=== PATIENT | female | born 1955 | race Caucasian/White ===

== ENCOUNTER → 2017-08-05 | Outpatient (CLI) | payer OTHER ==
[~2017-08-05] MED LIST: AMOX1TAB64 PO; FERR325T18 PO; FLUO40CA9 PO; HYDR-882 PO; HYDR2TAB29 PO; LORA2TAB PO; MORP-52 PO; OXYC-307 PO; POLY17PO5 PO
== END | disposition home or self-care (01) ==
LOC: CVU 06:46
PROVIDERS: ATTEND Surgery
DX: I77.819 Aortic ectasia, unspecified site (principal); I70.0 Atherosclerosis of aorta; I74.5 Embolism and thrombosis of iliac artery; Z87.891 Personal history of nicotine dependence; Z85.048 Personal history of other malignant neoplasm of rectum, rectosigmoid junction, and anus; E78.5 Hyperlipidemia, unspecified
CPT/HCPCS: 93880; 93922; 93978

== ENCOUNTER → 2017-09-21 | Outpatient (CLI) | payer OTHER ==
[~2017-09-21] MED LIST changes: +OMNIPAQUE 350 MG/ML, 100ML BOTTLE ONE
== END ==
LOC: CFH 09:09
PROVIDERS: ATTEND Internal Medicine Hematology & Oncology
DX: J43.2 Centrilobular emphysema (principal); J98.4 Other disorders of lung; Z85.048 Personal history of other malignant neoplasm of rectum, rectosigmoid junction, and anus; Z90.49 Acquired absence of other specified parts of digestive tract; Z93.3 Colostomy status; Z98.890 Other specified postprocedural states
CPT/HCPCS: 71260; 74177; Q9967

== ENCOUNTER → 2018-03-04 | Outpatient (CLI) | payer OTHER ==
[~2018-03-04] MED LIST changes: +ATOR10TA9 PO; +CLOP75TA52 PO; +DONE5TAB7 PO; +FLUO40CA2 PO; -OMNIPAQUE 350 MG/ML, 100ML BOTTLE ONE; +UMEC1DIS INH
== END | disposition home or self-care (01) ==
LOC: STAR 07:34
PROVIDERS: ATTEND Surgery
DX: Z02.9 Encounter for administrative examinations, unspecified (principal)

== ENCOUNTER 2018-03-07 09:00 | Day surgery (SDC) | payer OTHER ==
[2018-03-04 08:52] LABS: BASOPHILS # (AUTO) 0.04 x10^3/uL (0-0.1); BASOPHILS % (AUTO) 0 % (0-1); EOSINOPHILS # (AUTO) 0.13 x10^3/uL (0-0.4); EOSINOPHILS % (AUTO) 1 % (1-7); LYMPHOCYTES # (AUTO) 1.43 x10^3/uL (1-3.4); LYMPHOCYTES % (AUTO) 15 % (22-44); MD NO; MEAN CORPUSCULAR HGB CONC 33.6 g/dL (32.4-35.8); MEAN CORPUSCULAR VOLUME 89.4 fL (80-100); MEAN PLATELET VOLUME 7.5 fL (7.4-10.4); MONOCYTES # (AUTO) 0.48 x10^3/uL (0.2-0.8); MONOCYTES % (AUTO) 5 % (2-9); NEUTROPHILS # (AUTO) 7.47 x10^3/uL (1.8-6.8); NEUTROPHILS % (AUTO) 78 % (42-75); PLATELET COUNT 244 x10^3/uL (130-400); RED BLOOD COUNT 5.15 x10^6/uL (3.82-5.3)
[2018-03-04 09:03] LABS: ANION GAP 6 mmol/L (5-15); CALCIUM 9.2 mg/dL (8.5-10.1); CHLORIDE 108 mmol/L (98-107); CREATININE 1.28 mg/dL (0.55-1.02)
[~2018-03-07] VITALS: Ht 167.6 cm; Wt 62.7 kg
[2018-03-07 09:45] VITALS: BP 103/70
[2018-03-07] MEDS ORDERED: SODIUM CHLORIDE 0.9% 1,000 ML IV SCH ×3 (09:47→11:04)
[2018-03-07] MEDS ORDERED: LIDOCAINE-MPF 2%, 2ML ONE (09:55)
[2018-03-07] MEDS ORDERED: FENTANYL PF 100 MCG/2ML ONE (10:10)
[2018-03-07] MEDS ORDERED: NALOXONE 1 MG/ML, 2ML ONE (10:10)
[2018-03-07] MEDS ORDERED: HEPARIN 1,000 UNITS/ML, 10ML ONE (10:10)
[2018-03-07] MEDS ORDERED: PROTAMINE SULFATE 10 MG/ML, 25ML ONE (10:10)
[2018-03-07] MEDS ORDERED: MIDAZOLAM 1 MG/ML, 5ML ONE (10:10)
[2018-03-07] MEDS ORDERED: NITROGLYCERIN 5 MG/ML, 10ML ONE (10:10)
[2018-03-07] MEDS ORDERED: FLUMAZENIL 0.1 MG/1 ML, 5ML ONE (10:10)
[2018-03-07] MEDS ORDERED: VISIPAQUE 270 MG/ML, 50ML BOTTLE ONE (10:30)
[2018-03-07] MEDS ORDERED: CLOPIDOGREL 75 MG TABLET ONE (11:31)
== END 2018-03-07 13:00 | disposition home or self-care (01) ==
LOC: ENDO 09:00 → OUT 13:00
PROVIDERS: ATTEND Surgery
DX: I70.212 Atherosclerosis of native arteries of extremities with intermittent claudication, left leg (principal); F41.9 Anxiety disorder, unspecified; J44.9 Chronic obstructive pulmonary disease, unspecified; Z93.3 Colostomy status; Z85.048 Personal history of other malignant neoplasm of rectum, rectosigmoid junction, and anus; Z85.44 Personal history of malignant neoplasm of other female genital organs; Z88.1 Allergy status to other antibiotic agents
CPT/HCPCS: 36415; 37220; 75630; 76937; 80048; 85025; 99156; 99157; C1769; C1894; C2623; J1644; J2250; J3010; J3490; J7030; Q9966; J2720; J2310

== ENCOUNTER → 2018-05-19 | Outpatient (CLI) | payer OTHER ==
[~2018-05-19] MED LIST changes: +HYDR-3653 PO; -HYDR-882 PO
== END | disposition home or self-care (01) ==
LOC: CFH 10:12
PROVIDERS: ATTEND Family Medicine
DX: Z12.31 Encounter for screening mammogram for malignant neoplasm of breast (principal)
CPT/HCPCS: 77067

== ENCOUNTER → 2018-09-27 | Outpatient (CLI) | payer MEDICARE, OTHER | END | disposition home or self-care (01) | LOC: CVU 12:12 | PROVIDERS: ATTEND Surgery | DX: I70.201 Unspecified atherosclerosis of native arteries of extremities, right leg (principal); I77.819 Aortic ectasia, unspecified site; E78.5 Hyperlipidemia, unspecified; Z85.048 Personal history of other malignant neoplasm of rectum, rectosigmoid junction, and anus; Z95.820 Peripheral vascular angioplasty status with implants and grafts; Z87.891 Personal history of nicotine dependence | CPT/HCPCS: 93922; 93925; 93978 ==

== ENCOUNTER 2019-02-20 14:34 | Outpatient (CLI) | payer MEDICARE | END 2019-02-20 23:59 | disposition home or self-care (01) | LOC: CVU 14:34 | PROVIDERS: ATTEND Surgery | DX: I65.23 Occlusion and stenosis of bilateral carotid arteries (principal); I70.203 Unspecified atherosclerosis of native arteries of extremities, bilateral legs; I77.819 Aortic ectasia, unspecified site; I74.5 Embolism and thrombosis of iliac artery; E78.5 Hyperlipidemia, unspecified; Z72.0 Tobacco use | CPT/HCPCS: 93880; 93922; 93925; 93978 ==

== ENCOUNTER 2019-02-22 09:02 | Inpatient (IN) | payer MEDICARE ==
[~2019-02-22] VITALS: Ht 170.2 cm; Wt 67.4 kg
[2019-02-25 07:15] VITALS: BP 97/62
== END 2019-02-25 12:51 | disposition home or self-care (01) | DRG 254 ==
LOC: ORIP 09:02 → 4NOR 15:43 → DCLOUNGE 02-25 12:32
PROVIDERS: ADMIT Surgery; ATTEND Surgery
PROC: 04CL0ZZ Extirpation of Matter from Left Femoral Artery, Open Approach (ICD-10-PCS; principal; 2019-02-22)
PROC: 04UL0KZ Supplement Left Femoral Artery with Nonautologous Tissue Substitute, Open Approach (ICD-10-PCS; 2019-02-22)
PROC: 04CK0ZZ Extirpation of Matter from Right Femoral Artery, Open Approach (ICD-10-PCS; 2019-02-22)
PROC: 04UK0KZ Supplement Right Femoral Artery with Nonautologous Tissue Substitute, Open Approach (ICD-10-PCS; 2019-02-22)
PROC: 041K0JJ Bypass Right Femoral Artery to Left Femoral Artery with Synthetic Substitute, Open Approach (ICD-10-PCS; 2019-02-22)
PROC: 03HY32Z Insertion of Monitoring Device into Upper Artery, Percutaneous Approach (ICD-10-PCS; 2019-02-22)
DX: T82.898A Other specified complication of vascular prosthetic devices, implants and grafts, initial encounter (principal); Z93.3 Colostomy status; F41.9 Anxiety disorder, unspecified; D64.9 Anemia, unspecified; Y83.8 Other surgical procedures as the cause of abnormal reaction of the patient, or of later complication, without mention of misadventure at the time of the procedure; J44.9 Chronic obstructive pulmonary disease, unspecified; Z85.048 Personal history of other malignant neoplasm of rectum, rectosigmoid junction, and anus; Z88.2 Allergy status to sulfonamides; Z87.891 Personal history of nicotine dependence; Z82.49 Family history of ischemic heart disease and other diseases of the circulatory system; Y92.89 Other specified places as the place of occurrence of the external cause
CPT/HCPCS: 36415; 80048; 85025; 93005; G0378; J0171; J0690; J1100; J1644; J2250; J2405; J2704; J2720; J3010; J3490; C1768; J0330; J2270; J7120

== ENCOUNTER → 2019-06-06 | Outpatient (CLI) | payer MEDICARE ==
[~2019-06-06] MED LIST changes: +ACET325T26 PO; +CYCL-259 PO; +DOCU-131 PO; +ONDA4TAB7 PO; +OXYC-302 PO
== END | disposition home or self-care (01) ==
LOC: CVU 06:26
PROVIDERS: ATTEND Surgery
DX: I74.5 Embolism and thrombosis of iliac artery (principal); F41.9 Anxiety disorder, unspecified; E78.5 Hyperlipidemia, unspecified; J44.9 Chronic obstructive pulmonary disease, unspecified; Z87.891 Personal history of nicotine dependence; Z85.048 Personal history of other malignant neoplasm of rectum, rectosigmoid junction, and anus; Z90.89 Acquired absence of other organs; Z98.890 Other specified postprocedural states; Z88.2 Allergy status to sulfonamides
CPT/HCPCS: 93922; 93925; 93978

== ENCOUNTER → 2019-06-23 | Outpatient (CLI) | payer MEDICARE ==
[~2019-06-23] MED LIST changes: +ALBU18HF INH; +AMPH5CAP PO; +LORA-446 PO
== END | disposition home or self-care (01) ==
LOC: STAR 10:06
PROVIDERS: ATTEND Surgery
DX: Z02.9 Encounter for administrative examinations, unspecified (principal)

== ENCOUNTER → 2019-11-13 | Outpatient (CLI) | payer BC, MEDICARE | END | disposition home or self-care (01) | LOC: CVU 08:50 | PROVIDERS: ATTEND Surgery | DX: I74.5 Embolism and thrombosis of iliac artery (principal); I71.4 Abdominal aortic aneurysm, without rupture; E78.5 Hyperlipidemia, unspecified; I70.293 Other atherosclerosis of native arteries of extremities, bilateral legs; I10 Essential (primary) hypertension; D64.9 Anemia, unspecified; Z87.891 Personal history of nicotine dependence | CPT/HCPCS: 93922; 93925; 93978 ==

== ENCOUNTER 2020-03-12 12:54 | Emergency (ER) | payer MEDICARE ==
[~2020-03-12] VITALS: Ht 170.2 cm; Wt 59.7 kg
[2020-03-12] MEDS ORDERED: METOCLOPRAMIDE 5 MG/ML, 2ML IVPush ONE (13:30)
[2020-03-12] MEDS ORDERED: SODIUM CHLORIDE 0.9% 1,000ML IVBOLUS ONE (13:30)
[2020-03-12] MEDS ORDERED: SODIUM CHLORIDE FLUSH 10ML SYR IVF ONE (13:30)
[2020-03-12] MEDS ORDERED: METOCLOPRAMIDE 5 MG/ML, 2ML ONE (13:36)
--- NOTE | 2020-03-12 13:48 | NUR ---
Pt here for nausea that has not resolved, pt reports that she has been taking her nausea medications her pcp provided but has no relief. Pt denies trauma. Pt denies significant GI hx. Pt is tender to plaption and reports decreased appetite. Pt connected to monitors and call light in reach. Awaiting further orders.
[2020-03-12 14:04] VITALS: BP 121/72
[2020-03-12 14:08] LABS: BASOPHILS # (AUTO) 0.02 x10^3/uL (0-0.1); BASOPHILS % (AUTO) 0 % (0-1); EOSINOPHILS # (AUTO) 0.11 x10^3/uL (0-0.4); EOSINOPHILS % (AUTO) 2 % (1-7); LYMPHOCYTES # (AUTO) 0.98 x10^3/uL (1-3.4); LYMPHOCYTES % (AUTO) 13 % (22-44); MD NO; MEAN CORPUSCULAR HEMOGLOBIN 32.1 pg (27.0-34.8); MEAN CORPUSCULAR HGB CONC 33.2 g/dL (32.4-35.8); MEAN CORPUSCULAR VOLUME 96.9 fL (80-100); MEAN PLATELET VOLUME 7.8 fL (7.4-10.4); MONOCYTES # (AUTO) 0.44 x10^3/uL (0.2-0.8); MONOCYTES % (AUTO) 6 % (2-9); NEUTROPHILS # (AUTO) 5.83 x10^3/uL (1.8-6.8); NEUTROPHILS % (AUTO) 79 % (42-75); PLATELET COUNT 158 x10^3/uL (130-400); RED BLOOD COUNT 4.62 x10^6/uL (3.82-5.3); RED CELL DISTRIBUTION WIDTH 16.1 % (9.6-15.2)
[2020-03-12 14:20] LABS: ALBUMIN 3.7 g/dL (3.4-5.0); ANION GAP 10 mmol/L (5-15); CALCIUM 9.3 mg/dL (8.5-10.1); CHLORIDE 101 mmol/L (98-107)
[2020-03-12 14:25] LABS: ALANINE AMINOTRANSFERASE 57 U/L (12-78); ALKALINE PHOSPHATASE 93 U/L (45-117); CREATININE 1.37 mg/dL (0.55-1.02); TOTAL PROTEIN 7.4 g/dL (6.4-8.2); TROPONIN I < 0.015 ng/mL (0.000-0.045)
[2020-03-12 14:44] LABS: MICROSCOPIC INDICATED
--- NOTE | 2020-03-12 15:31 | NUR ---
Pt reports feeling better and nausea resolved. Pt to be dc.
--- NOTE | 2020-03-12 15:32 | NUR ---
Patient/Caregiver given discharge instructions and they have confirmed that they understand the instructions. Patient ambulatory with steady gait.
== END 2020-03-12 15:37 | disposition home or self-care (01) ==
LOC: ED 13:14
DX: R11.2 Nausea with vomiting, unspecified (principal); F17.210 Nicotine dependence, cigarettes, uncomplicated; R19.7 Diarrhea, unspecified; R00.1 Bradycardia, unspecified; R10.9 Unspecified abdominal pain; Z85.048 Personal history of other malignant neoplasm of rectum, rectosigmoid junction, and anus
CPT/HCPCS: 36415; 71045; 80053; 81001; 83605; 83690; 84484; 85025; 93005; 96361; 96374; 99285; J2765; J7030

== ENCOUNTER 2020-03-23 16:36 | Emergency (ER) | payer MEDICARE ==
[~2020-03-23] VITALS: Ht 167.6 cm; Wt 59.1 kg
--- NOTE | 2020-03-23 16:48 | NUR ---
PT BIB [facility] FROM HOME. PT STATES HER SISTER CALLED 911. PT IS TRYING TO DETOX FROM ALCOHOL. STATES SHE WENT TO [place] YESTERDAY "BUT I HAD TO WAIT 5 HOURS, SO I LEFT". PT DRANK TODAY. UNSTEADY GAIT. OTHERWISE A&OX4, COOPERATIVE, VSS. RESIDENT AT NOW. Addendum: 03/23/20 at 1756 by KWASI PER PT'S SISTER, PT WENT TO [facility] YESTERDAY AND HAD BLOOD ALCOHOL LEVEL OF 0.4
--- NOTE | 2020-03-23 17:54 | NUR ---
PT'S SISTER AGNIESZKA CALLED, WANTS TO MAKE SURE THAT PT GETS TRANSFERRED TO [place]. STATES PT HAS BEEN DRINKING NONSTOP X7 DAYS AND HASN'T EATEN IN 6 DAYS. STATES PT NORMALLY TAKES PROZAC, PLAVIX, AND A STATIN, AND ATIVAN FOR ANXIETY. INFORMED SISTER THAT WE CAN UPDATE HER ON POC IN ABOUT AN HOUR.
[2020-03-23] MEDS ORDERED: THIAMINE 100MG TABLET PO ONE (18:00)
--- NOTE | 2020-03-23 18:20 | NUR ---
BREAK RN- MEAL TRAY PROVIDED.
--- NOTE | 2020-03-23 18:40 | NUR ---
ERP WAS IN FOR RECHECK.
--- NOTE | 2020-03-23 19:10 | NUR ---
PT REQUESTING TO GO TO [facility] FOR [facility]. CALLED [facility] AND THEY SAID THEY CAN TAKE PT IF SHE IS MEDICALLY CLEARED; [facility] REQUESTING CBC & CMP PRIOR TO DISCHARGE. ERP NOTIFIED, NEW ORDERS RC'VD.
[2020-03-23] MEDS ORDERED: THIAMINE 100MG TABLET ONE (19:15)
[2020-03-23 19:44] LABS: BASOPHILS # (AUTO) 0.04 x10^3/uL (0-0.1); BASOPHILS % (AUTO) 0 % (0-1); EOSINOPHILS # (AUTO) 0.01 x10^3/uL (0-0.4); EOSINOPHILS % (AUTO) 0 % (1-7); LYMPHOCYTES # (AUTO) 1.24 x10^3/uL (1-3.4); LYMPHOCYTES % (AUTO) 11 % (22-44); MD NO; MEAN CORPUSCULAR HGB CONC 33.1 g/dL (32.4-35.8); MEAN CORPUSCULAR VOLUME 96.6 fL (80-100); MEAN PLATELET VOLUME 7.5 fL (7.4-10.4); MONOCYTES # (AUTO) 0.35 x10^3/uL (0.2-0.8); MONOCYTES % (AUTO) 3 % (2-9); NEUTROPHILS # (AUTO) 9.58 x10^3/uL (1.8-6.8); NEUTROPHILS % (AUTO) 85 % (42-75); PLATELET COUNT 161 x10^3/uL (130-400); RED BLOOD COUNT 4.45 x10^6/uL (3.82-5.3); RED CELL DISTRIBUTION WIDTH 16.8 % (9.6-15.2)
--- NOTE | 2020-03-23 19:49 | NUR ---
PT STATED SHE COULDN'T EAT ANY OF HER DINNER TRAY, STATED IT WAS "TOO RICH". CRACKERS & APPLESAUCE PROVIDED. PT ALSO REQUESTED LIBRIUM & ZOFRAN, C/O NAUSEA. PT TALKING ON THE PHONE WITH SISTER AGNIESZKA NOW, UPDATING HER ON PLAN.
[2020-03-23] MEDS ORDERED: ONDANSETRON ODT 4 MG ONE (19:51)
[2020-03-23 19:58] LABS: ALANINE AMINOTRANSFERASE 135 U/L (12-78); ALBUMIN 3.3 g/dL (3.4-5.0); ANION GAP 11 mmol/L (5-15); CALCIUM 8.3 mg/dL (8.5-10.1); CHLORIDE 103 mmol/L (98-107); CREATININE 1.11 mg/dL (0.55-1.02)
[2020-03-23 20:00] LABS: ALKALINE PHOSPHATASE 93 U/L (45-117); BILIRUBIN,TOTAL 0.7 mg/dL (0.2-1.0); TOTAL PROTEIN 6.3 g/dL (6.4-8.2)
[2020-03-23] MEDS ORDERED: ONDANSETRON ODT 4 MG PO ONE (20:00)
[2020-03-23] MEDS ORDERED: CHLORDIAZEPOXIDE 25 MG CAPSULE PO ONE (20:00)
[2020-03-23] MEDS ORDERED: CHLORDIAZEPOXIDE 25 MG CAPSULE ONE (20:01)
[2020-03-23] MEDS ORDERED: POTASSIUM CHLORIDE 20 MEQ TAB.ER.PRT ONE (20:11)
[2020-03-23] MEDS ORDERED: POTASSIUM CHLORIDE 20 MEQ TAB.ER.PRT PO ONE (20:30)
[2020-03-23 20:35] VITALS: BP 121/58
--- NOTE | 2020-03-23 20:53 | NUR ---
PT WAS MEDICATED PER ORDERS. UNABLE TO EAT MUCH D/T NAUSEA. VERY SHAKY. NOTIFIED JAIRO AT [facility] THAT PT IS MEDICALLY CLEARED. D/C INSTRUTIONS PROVIDED TO PT. RX GIVEN X2. CAB VOUCHER PROVIDED TO PT TO GO DIRECTLY TO [facility]. Addendum: 03/23/20 at 2053 by RUFINAON EXTRA OSTOMY SUPPLIES PROVIDED TO PT SO THAT SHE MAY CHANGE APPLIANCE AT [facility].
== END 2020-03-23 20:53 | disposition home or self-care (01) ==
LOC: ED 17:29
DX: F10.10 Alcohol abuse, uncomplicated (principal); E87.6 Hypokalemia; J44.9 Chronic obstructive pulmonary disease, unspecified; Z85.048 Personal history of other malignant neoplasm of rectum, rectosigmoid junction, and anus; Y90.9 Presence of alcohol in blood, level not specified
CPT/HCPCS: 36415; 80053; 83690; 85025; 99283; Q0162

== ENCOUNTER → 2020-05-17 | Outpatient (CLI) | payer MEDICARE | END | disposition home or self-care (01) | LOC: CVU 06:48 | PROVIDERS: ATTEND Surgery | DX: I70.203 Unspecified atherosclerosis of native arteries of extremities, bilateral legs (principal); I77.1 Stricture of artery; I70.0 Atherosclerosis of aorta | CPT/HCPCS: 93922; 93925; 93978 ==

== ENCOUNTER 2020-09-16 04:31 | Emergency (ER) | payer MEDICARE ==
[~2020-09-16] VITALS: Ht 170.2 cm; Wt 67.0 kg
[~2020-09-16 04:31] MED LIST changes: -CYCL-259 PO; +CYCL10TA2 PO; -OXYC-302 PO; -OXYC-307 PO; +OXYC-380 PO; +OXYC1TAB14 PO
[2020-09-16] MEDS ORDERED: HYDROmorphone 1 MG/ML, 1ML INJ ONE (05:20)
[2020-09-16] MEDS ORDERED: ONDANSETRON 2MG/ML, 2ML ONE (05:20)
--- NOTE | 2020-09-16 05:23 | NUR ---
Pt states waking up with left upper leg/hip pain. Pt states pain woke her up, having difficulty walking, and shooting sharp pain. + sensation and pulse to left foot. Foot warm and pink. Pt with limitied ROM.
[2020-09-16] MEDS ORDERED: ONDANSETRON 2MG/ML, 2ML IVPush ONE (05:30)
[2020-09-16] MEDS ORDERED: HYDROmorphone 1 MG/ML, 1ML INJ IVPush PRN ×2 (05:30)
[2020-09-16] MEDS ORDERED: SODIUM CHLORIDE FLUSH 10ML SYR IVF ONE (05:30)
[2020-09-16 05:56] VITALS: BP 107/64
--- NOTE | 2020-09-16 05:57 | NUR ---
pt back from xray. Pt medicated per order. Pt with stable VS. Pulses palpable to left foot.
--- NOTE | 2020-09-16 06:13 | NUR ---
Pt states relief from pain meds. Pt with no further changes. Calm in bed. Will monitor.
--- NOTE | 2020-09-16 07:10 | NUR ---
DISCHARGE INSTRUCTIONS REVIEWED WITH PT. ALL QUESTIONS ANSWERED AT THIS TIME.
== END 2020-09-16 07:13 | disposition home or self-care (01) ==
LOC: ED 06:22
DX: M70.72 Other bursitis of hip, left hip (principal); Z85.048 Personal history of other malignant neoplasm of rectum, rectosigmoid junction, and anus
CPT/HCPCS: 72110; 73502; 96374; 96375; 99284; J1170; J2405

== ENCOUNTER 2020-10-25 10:33 | Outpatient (CLI) | payer MEDICARE | END 2020-10-25 23:59 | disposition home or self-care (01) | LOC: CFH 10:33 | PROVIDERS: ATTEND Family Medicine | DX: Z12.31 Encounter for screening mammogram for malignant neoplasm of breast (principal) | CPT/HCPCS: 77063; 77067 ==

== ENCOUNTER → 2020-12-04 | Outpatient (CLI) | payer MEDICARE | END | disposition home or self-care (01) | LOC: CVU 12:20 | PROVIDERS: ATTEND Surgery | DX: I70.203 Unspecified atherosclerosis of native arteries of extremities, bilateral legs (principal) | CPT/HCPCS: 93922; 93925; 93978 ==